=== PATIENT | female | born 1995 ===

== ENCOUNTER 2022-01-07 10:28 | Emergency (ER) | payer OTHER | END 2022-01-07 14:29 | disposition home or self-care (01) | LOC: ER 10:28 | DX: B34.9 Viral infection, unspecified (principal); Z20.822 Contact with and (suspected) exposure to COVID-19 ==

== ENCOUNTER 2022-01-09 06:36 | Emergency (ER) | payer OTHER ==
[~2022-01-09] VITALS: Ht 154.9 cm; Wt 81.6 kg
[~2022-01-09 06:36] MED LIST: XANAX XR0.5 MG PO
[2022-01-09] MEDS ORDERED: [UNRECOGNIZED DRUG - OTHER] (06:55)
== END 2022-01-09 11:14 | disposition home or self-care (01) ==
LOC: ER 06:36
DX: U07.1 COVID-19 (principal); F41.8 Other specified anxiety disorders